=== PATIENT | female | born 1960 | race Caucasian/White ===

== ENCOUNTER 2018-03-28 09:47 | Emergency (ER) | payer SELFPAY ==
[~2018-03-28] VITALS: Ht 165.1 cm; Wt 77.0 kg
[~2018-03-28 09:47] MED LIST: NONE PER PT
--- NOTE | 2018-03-28 10:12 | NUR ---
PATIENT PRESENTS TO ED TODAY FOR MID BACK PAIN AND RT EAR PAIN, PATIENT TESTED POSITIVE FOR FLU LAST WEDNESDAY. FAMILY AT BEDSIDE, CALL LIGHT WITHIN REACH, SKIN WARM, PINK, DRY. TRACY.
--- NOTE | 2018-03-28 10:15 | NUR ---
XRAY AT BEDSIDE.
[2018-03-28] MEDS ORDERED: KETOROLAC 30 MG/1 ML ONE (10:20)
--- NOTE | 2018-03-28 10:22 | NUR ---
LAB AT BEDSIDE.
[2018-03-28] MEDS ORDERED: KETOROLAC 60 MG/2 ML IM ONE (10:30)
[2018-03-28 10:35] LABS: BASOPHILS # (AUTO) 0.02 x10^3/uL (0-0.1); BASOPHILS % (AUTO) 1 % (0-1); EOSINOPHILS % (AUTO) 0 % (1-7); LYMPHOCYTES # (AUTO) 1.37 x10^3/uL (1-3.4); LYMPHOCYTES % (AUTO) 37 % (22-44); MD NO; MEAN CORPUSCULAR HEMOGLOBIN 27.5 pg (27.0-34.8); MEAN CORPUSCULAR HGB CONC 33.5 g/dL (32.4-35.8); MEAN PLATELET VOLUME 8.1 fL (7.4-10.4); MONOCYTES # (AUTO) 0.24 x10^3/uL (0.2-0.8); MONOCYTES % (AUTO) 7 % (2-9); NEUTROPHILS # (AUTO) 2.07 x10^3/uL (1.8-6.8); NEUTROPHILS % (AUTO) 56 % (42-75); PLATELET COUNT 139 x10^3/uL (130-400); RED CELL DISTRIBUTION WIDTH 14.1 % (9.6-15.2)
--- NOTE | 2018-03-28 10:50 | NUR ---
PATIENT AMB WITH STEADY GAIT TO BATHROOM, SMALL AMOUNT OF URINE COLLECTED AND WALKED TO LAB.
[2018-03-28 10:51] LABS: ALANINE AMINOTRANSFERASE 44 U/L (12-78); ALBUMIN 3.1 g/dL (3.4-5.0); ANION GAP 14 mmol/L (5-15); CALCIUM 8.2 mg/dL (8.5-10.1); CHLORIDE 107 mmol/L (98-107); CREATININE 0.93 mg/dL (0.55-1.02)
[2018-03-28 10:53] LABS: ALKALINE PHOSPHATASE 44 U/L (45-117); BILIRUBIN,TOTAL 0.6 mg/dL (0.2-1.0); TOTAL PROTEIN 6.6 g/dL (6.4-8.2)
[2018-03-28 11:15] LABS: MICROSCOPIC AUTO
[2018-03-28 11:16] LABS: CULTURE INDICATED? NO
--- NOTE | 2018-03-28 11:22 | NUR ---
RESULTS BACK, CHART UP FOR RECHECK.
--- NOTE | 2018-03-28 11:57 | NUR ---
REPORT TO GEORGES RODNEY.
[2018-03-28 12:25] VITALS: BP 135/85
--- NOTE | 2018-03-28 12:32 | NUR ---
Patient/Caregiver given discharge instructions and they have confirmed that they understand the instructions. Patient ambulatory with steady gait.
== END 2018-03-28 12:32 | disposition home or self-care (01) ==
LOC: ED 11:14
DX: B34.9 Viral infection, unspecified (principal); E86.0 Dehydration; R11.2 Nausea with vomiting, unspecified
CPT/HCPCS: 36415; 71045; 80053; 81001; 83605; 85025; 93005; 96372; 99284; J1885